=== PATIENT | male | born 1935 | race Caucasian/White ===

== ENCOUNTER 2018-03-15 22:32 | Observation (INO) | payer MEDICARE, BC ==
[2018-03-15 23:20] LABS: ADD MAN DIFF? NO
[2018-03-15 23:21] LABS: WHITE BLOOD COUNT 5.3 10^3/ul (4.8-10.8)
[2018-03-15 23:21] LABS: BASOPHILS % 0.4 % (0.0-2.0); EOSINOPHILS # 0.1 10^3/ul (0.0-0.5); EOSINOPHILS % 1.7 % (0.0-7.0); HEMATOCRIT 41.7 % (42.0-52.0); HEMOGLOBIN 13.8 g/dl (14.0-18.0); LYMPHOCYTES # 1.1 10^3/ul (0.8-2.9); LYMPHOCYTES % 21.2 % (15.0-51.0); MEAN CORPUSCULAR HEMOGLOBIN 30.5 pg (29.0-33.0); MEAN CORPUSCULAR HGB CONC 33.1 g/dl (32.0-37.0); MEAN CORPUSCULAR VOLUME 92.1 fl (82.0-101.0); MEAN PLATELET VOLUME 11.3 fl (7.4-10.4); MONOCYTE # 0.7 10^3/ul (0.3-0.9); MONOCYTES % 13.2 % (0.0-11.0); NEUTROPHIL # 3.4 10^3/ul (1.6-7.5); NEUTROPHILS % 63.1 % (39.0-77.0); PLATELET COUNT 163 10^3/UL (140-415); RED BLOOD COUNT 4.53 10^6/ul (4.70-6.10)
[2018-03-15 23:39] LABS: ANION GAP 11 (5-13); BLOOD UREA NITROGEN 16 mg/dl (7-20); CALCIUM 9.4 mg/dl (8.4-10.2); CARBON DIOXIDE 27 mmol/L (21-31); CHLORIDE 102 mmol/L (97-110); CREATININE 0.73 mg/dl (0.61-1.24); GLUCOSE 128 mg/dl (70-220); SODIUM 140 mmol/L (135-144)
[2018-03-15 23:41] LABS: INR 0.94; PARTIAL THROMBOPLASTIN TIME 30.7 Sec (23.0-35.0); PROTIME 12.7 Sec (11.9-14.9)
[2018-03-16] MEDS ORDERED: DOCUSATE SODIUM 100 MG CAP PO
[2018-03-16] MEDS ORDERED: MAGNESIUM HYDROXIDE 30ML CUP PO
[2018-03-16] MEDS ORDERED: NACL 0.9% 3 ML SYG IV
[2018-03-16] MEDS ORDERED: HYDROCORTISONE 25 MG SUPP PR
[2018-03-16] MEDS ORDERED: ACETAMINOPHEN 325 MG TAB PO ×2
[2018-03-16] MEDS ORDERED: HYDROCODONE/APAP (5/325) TAB PO
[2018-03-16] MEDS ORDERED: ONDANSETRON 4 MG INJ IV ×2
[2018-03-16] MEDS ORDERED: ZOLPIDEM 5 MG TAB PO
[2018-03-16] MEDS: SOD CHLORIDE 0.9% 1,000 ML IV (01:10)
[2018-03-16] MEDS: LORAZEPAM 0.5 MG TAB PO (01:27)
[2018-03-16 05:34] LABS: ADD MAN DIFF? NO
[2018-03-16 05:41] LABS: BASOPHILS % 0.3 % (0.0-2.0); EOSINOPHILS # 0.1 10^3/ul (0.0-0.5); EOSINOPHILS % 1.6 % (0.0-7.0); HEMATOCRIT 36.2 % (42.0-52.0); HEMOGLOBIN 12.1 g/dl (14.0-18.0); LYMPHOCYTES # 1.2 10^3/ul (0.8-2.9); LYMPHOCYTES % 18.9 % (15.0-51.0); MEAN CORPUSCULAR HEMOGLOBIN 30.8 pg (29.0-33.0); MEAN CORPUSCULAR HGB CONC 33.4 g/dl (32.0-37.0); MEAN CORPUSCULAR VOLUME 92.1 fl (82.0-101.0); MEAN PLATELET VOLUME 11.9 fl (7.4-10.4); MONOCYTE # 0.6 10^3/ul (0.3-0.9); MONOCYTES % 9.4 % (0.0-11.0); NEUTROPHIL # 4.3 10^3/ul (1.6-7.5); NEUTROPHILS % 69.6 % (39.0-77.0); PLATELET COUNT 161 10^3/UL (140-415); RED BLOOD COUNT 3.93 10^6/ul (4.70-6.10); RED CELL DISTRIBUTION WIDTH 13.2 % (11.5-14.5)
[2018-03-16 05:41] LABS: WHITE BLOOD COUNT 6.2 10^3/ul (4.8-10.8)
[2018-03-16 05:50] LABS: RETICULOCYTE COUNT # 0.071 X10^6 (0.020-0.110); RETICULOCYTE COUNT % 1.8 % (0.5-1.5)
[2018-03-16] MEDS: PANTOPRAZOLE (EC) 40 MG TAB PO (05:55)
[2018-03-16 05:56] LABS: IRON 49 ug/dl (35-150)
[2018-03-16 06:06] LABS: % IRON SATURATION 17 % SAT (22-52); TOTAL IRON BINDING CAPACITY 289 ug/dl (241-421)
[2018-03-16 06:20] LABS: ALANINE AMINOTRANSFERASE 29 IU/L (13-69); ALBUMIN 3.8 g/dl (3.3-4.9); ALBUMIN/GLOBULIN RATIO 1.65; ALKALINE PHOSPHATASE 77 IU/L (42-121); ANION GAP 9 (5-13); ASPARTATE AMINO TRANSFERASE 27 IU/L (15-46); BILIRUBIN,INDIRECT 0.4 mg/dl (0-1.1); BILIRUBIN,TOTAL 0.4 mg/dl (0.2-1.3); BLOOD UREA NITROGEN 13 mg/dl (7-20); CALCIUM 8.6 mg/dl (8.4-10.2); CARBON DIOXIDE 27 mmol/L (21-31); CHLORIDE 105 mmol/L (97-110); CHOL/HDL RATIO 2.4 RATIO; CHOLESTEROL 145 mg/dl (100-200); CREATININE 0.63 mg/dl (0.61-1.24); GLUCOSE 108 mg/dl (70-220); HDL CHOLESTEROL 60 mg/dl (31-75); LDL CHOLESTEROL,CALCULATED 73 mg/dl; PHOSPHORUS 2.6 mg/dl (2.5-4.9); POTASSIUM 3.7 mmol/L (3.5-5.1); SODIUM 141 mmol/L (135-144); TOTAL PROTEIN 6.1 g/dl (6.1-8.1); TRIGLYCERIDES 59 mg/dl (0-149)
[2018-03-16 06:53] LABS: CARCINOEMBRYONIC ANTIGEN 2.1 ng/ml (0.0-5.0)
[2018-03-16 07:33] LABS: FOLATE 18.5 ng/ml (2.8-20.0)
[2018-03-16] MEDS: AMLODIPINE 5 MG TAB PO (08:29)
[2018-03-16] MEDS: TAMSULOSIN (SR) 0.4 MG CAP PO (08:29)
[2018-03-16 08:48] LABS: HEMOGLOBIN A1C 5.4 % (0-5.9)
[2018-03-16] MEDS: IBUPROFEN 600 MG TAB PO (09:04)
[2018-03-16 13:24] LABS: OCCULT BLOOD STOOL POSITIVE (NEGATIVE)
== END 2018-03-16 14:00 | disposition home or self-care (01) ==
LOC: MS1 23:40 → E/R 22:32
PROVIDERS: Internal Medicine
DX: K64.9 Unspecified hemorrhoids (principal); I10 Essential (primary) hypertension; N40.0 Benign prostatic hyperplasia without lower urinary tract symptoms; F41.9 Anxiety disorder, unspecified; K57.90 Diverticulosis of intestine, part unspecified, without perforation or abscess without bleeding; F43.10 Post-traumatic stress disorder, unspecified
CPT/HCPCS: 36415; 80048; 80053; 80061; 82270; 82378; 82607; 82746; 83036; 83540; 83735; 84100; 84443; 85025; 85045; 85610; 85730; 86850; 86900; 86901; 99285-25